=== PATIENT | female | born 1980 | race Caucasian/White ===

== ENCOUNTER 2019-10-22 05:54 | Emergency (ER) | payer BC, SELFPAY ==
[2019-10-22 06:15] VITALS: BP 118/96; PULSE 77; RESP 18; TEMP 36.8; O2SAT 98
[2019-10-22 06:23] LABS: Abs Immature Grans 0.02 k/cumm (0.0-0.09); Absolute Basophil Count 0.05 k/cumm (0.0-0.2); Absolute Eosinophil Count 0.15 k/cumm (0.0-0.7); Absolute Lymphocyte Count 2.28 k/cumm (1.2-3.4); Absolute Monocyte Count 0.93 k/cumm (0.11-0.7); Absolute Neutrophil Count 5.89 k/cumm (1.2-6.7); Basophils % 0.5; Eosinophils % 1.6; HGB 13.2 g/dL (12.0-15.5); Immature Grans % 0.2; Lymphocytes % 24.5; Mean Corp. HGB Concentration 34.7 g/dL (32.0-36.0); Mean Corpuscular Hemoglobin 28.6 pg (27.0-33.0); Mean Corpuscular Volume 82.4 fL (80-95); Mean Platelet Volume 9.8 fL (8.0-11.0); Neutrophils % 63.2; Platelet Count 198 x1000/uL (130-400); RBC 4.61 m/cumm (4.00-5.20); RBC Distribution Width 12.5 % (11.7-14.6); White Blood Cell Count 9.32 k/cumm (4.4-10.8)
[2019-10-22] MEDS: Omnipaque 350 MG/ML 100 ML BTL IJ (06:35)
--- NOTE | 2019-10-22 06:45 | DI.CT_ITS ---
EXAM: CT NECK W CLINICAL HISTORY: throat closing sensation, left throat pain TECHNIQUE: 100 cc Omnipaque 350 IV. COMPARISON: No exams were available for comparison FINDINGS: The parotid, submandibular and thyroid glands appear normal. There is no prevertebral soft tissue s welling. No tonsillar enlargement or tonsillar abscess is seen. There is no evidence of adenopathy. Epiglottis appears normal. The visualized portions of the lung apices appear clear. The sinuses a nd mastoid air cells appear clear. The visualized portions of the brain are unremarkable. There are minimal degenerative changes in the mid cervical spine. IMPRESSION: Negative CT of the neck.
--- NOTE | 2019-10-22 06:49 | DI.VRAD_ITS ---
PROCEDURE INFORMATION: Exam: CT Neck With Contrast Exam date and time: 10/22/2019 6:33 AM Age: 39 years old Clinical history: Throat pain; Additional info: Left throat pain, throat closing sensation TECHNIQUE: Imaging protocol: Computed tomography images of the neck with intravenous contrast. Radiation optimization: All CT scans at this facility use at least one of these dose optimization techniques: automated exposure control; mA and/or kV adjustment per patient size (includes targeted exams where dose is matched to clinical indication); or iterative reconstruction. Contrast material: [id number]; Contrast volume: 100 ml; Contrast route: IV LAC 18G; COMPARISON: No relevant prior studies available. FINDINGS: Nasopharynx: Unremarkable. Oropharynx: Unremarkable. No significant tonsillar enlargement. Hypopharynx: Unremarkable Larynx: Unremarkable. Normal epiglottis. Retropharyngeal space: Unremarkable. Submandibular/Parotid glands: Normal. Glands are normal in size. Thyroid: Normal. No enlarged or calcified nodules. Lymph nodes: Unremarkable. No lymphadenopathy. Trachea: Visualized trachea is unremarkable. Lungs: Unremarkable as visualized. Bones/joints: Degenerative change of the spine. Soft tissues: Unremarkable. No significant soft tissue swelling. IMPRESSION: No acute finding. Dictated and Authenticated by: Mickey Baltazar MD. Ordering:SYDNEY Aguayo MD
--- NOTE | 2019-10-22 06:55 | ED.GENADUL_ITS ---
Discharge Plan Disposition Patient Disposition: HOME Condition: Good Discharge Details Chief Complaint: Sorethroat Clinical Impression: Pain in throat Primary Care Provider: None,None ED Provider: Olivier Bran Home Meds and New Rx's Prescriptions: No Action ibuprofen 800 MG tablet 800 mg PO TID PRN PRNRF: 0 albuterol sulfate [Proventil HFA] 1 PUFF HFA aerosol inhaler 2 puff Inhalation QID PRN PRN (Reason: Wheezing) Qty: 1 RF: 0 (DME) inhalational spacing device [POCKET CHAMBER] 1 EACH spacer 1 ea Miscellaneous QID PRN Qty: 1 RF: 0 Discharge Instructions Instructions: Pharyngitis (ED) Additional Instructions: At this time your CT scan shows no evidence of abscess, lesion, tumor growth or mass. I suspect her symptoms are likely from a virus causing pharyngitis. Please take 800 mg of ibuprofen every 6 hours and up to 1000 mill grams of Tylenol every 6 hours. Please take 2 to 4 tablespoons of honey every 4-6 hours as well. If you notice any worsening of your symptoms, or any new symptoms such as vomiting, diarrhea, fever, chills, shortness of breath, chest pain, numbness, weakness, or fainting , please return immediately to the emergency department for reevaluation. Please follow up with your primary care provider as soon as possible for reassessment and reevaluation. As always, it was a pleasure participating in your medical care today. Medical Decision Making This is a 39-year-old female with no significant past medical history who presents today for evaluation of throat pain, patient states that for last 24 hours she has developed mild pain in the left side of her throat which she describes as a swelling mass which she feels is making slightly more difficult to swallow, however she is able to swallow drink and articulate well without any difficulty. Patient is very concerned about the sensation of this, she states that she had tonsillitis before he was notably severe requiring significant intervention. She is very worried for a mass or abscess growing in her throat. Physical exam demonstrates a notably unremarkable posterior oropharynx, mild swelling of the lymph nodes in the submandibular region. No tracheal deviation, or evidence of peritonsillar abscess or other abnormality. Discussed risks and benefits of imaging, including the risk of radiation, understanding these patient is requesting further imaging evaluation. Decadron and Toradol were given, and symptoms notably improved. CT scan was ordered and per virtual radiology demonstrates no evidence of paratracheal, peritonsillar, or other abscess or life-threatening throat abnormality. Signs and symptoms are inconsistent with severe vocal cord dysfunction, no stridor or other concerning clinical exam finding. At this time he feels patient signs and symptoms are clinically secondary to mild viral URI and subsequent minimal lymphadenopathy. Signs and symptoms and consistent with mono. Recommend Tylenol, Motrin and honey at home and close follow-up. She was given the Decadron and Toradol here. I have extensively reviewed the treatment plan and discharge instructions with the patient. I have addressed all patient concerns at this time. The patient was made aware of what symptoms to monitor for that would warrant a return to the emergency department. Discussed the plan with the patient, they demonstrate verbal understanding and agreement with our assessment and plan at this time. FINDINGS: Nasopharynx: Unremarkable. Oropharynx: Unremarkable. No significant tonsillar enlargement. Hypopharynx: Unremarkable Larynx: Unremarkable. Normal epiglottis. Retropharyngeal space: Unremarkable. Submandibular/Parotid glands: Normal. Glands are normal in size. Thyroid: Normal. No enlarged or calcified nodules. Lymph nodes: Unremarkable. No lymphadenopathy. Trachea: Visualized trachea is unremarkable. Lungs: Unremarkable as visualized. Bones/joints: Degenerative change of the spine. Soft tissues: Unremarkable. No significant soft tissue swelling. IMPRESSION: No acute finding. Thank you for allowing us to participate in the care of your patient. Dictated and Authenticated by: Mickey Baltazar MD 10/22/2019 6:49 AM Eastern Time ([place] & [place]) [facility] General Date/Time Provider Initiated Documentation: 10/22/19 05:59 . HPI Narrative: This is a 39-year-old female with no significant past medical history who presents today for evaluation of sore throat. Patient states that over the last 12 to 24 hours she developed mild pain in the left side of her throat and something that she describes as a swelling sensation, primarily under the left side of the jaw, not so much in the neck. She denies any difficulty speaking or swallowing. She denies any fever or chills. She denies any posterior neck pain or headache. She denies any chest pain. She denies any numbness tingling or weakness. She denies any severe fatigue. No other complaints at this time. No other modifying factors. Related Data Home Medications Medication Instructions Recorded Confirmed ibuprofen 800 mg PO TID PRN PRN 02/02/15 04/02/16 albuterol sulfate [Proventil HFA] 2 puff INHALATION QID PRN PRN #1 04/02/16 inh inhalational spacing device #1 spacer 04/02/16 [POCKET CHAMBER] Previous Rx's Medication Instructions Recorded albuterol sulfate [Proventil HFA] 2 puff INHALATION QID PRN PRN #1 04/02/16 inh inhalational spacing device #1 spacer 04/02/16 [POCKET CHAMBER] Allergies Allergy/AdvReac Type Severity Reaction Status Date / Time No Known Allergies Allergy Unverified 04/02/16 09:20 General Stated Complaint: Sorethroat STEVIE: 4 Review of Systems All systems reviewed & are unremarkable except as noted in HPI and below PFSH Social History Smoking/Tobacco Use Status: Never Drug use: Never Do you feel safe at home: Yes Exam Narrative Exam Narrative: 1.Const: Well-nourished, Well-developed, appearing stated age 2.Eyes: PERRL, no conjunctival injection, and symmetrical lids. 3.ENT: Atraumatic external nose and ears. Moist MM. Neck: Symmetric, trachea midline, No thyromegaly. No evidence of tonsillar enlargement or erythema in the posterior oropharynx. No tenderness on palpation of the throat, no mass or tracheal deviation. Mild swelling in the submandibular gland on the left. No other abnormality. Patient demonstrates good movement of cervical neck. There is no nuchal rigidity, no nuchal tenderness. Patient is able to flex the neck without any difficulty or significant pain. Negative Kernig's and Brudzinski sign. 4.CVS: +S1/S2, No murmurs or gallops. Peripheral pulses 2+ and equal in all extremities. Brisk capillary refill in all extremities. 5.RESP: Unlabored respiratory effort. Clear to auscultation bilaterally. No wheezes rales or rhonchi 6.GI: Soft, Nontender/Nondistended, No hepatosplenomegaly. No guarding or rebound. 7.MSK: Normocephalic/Atraumatic, Extremities w/o deformity or ttp No cyanosis or clubbing, Normal movement of all extremities 8.Skin: Warm, Dry. No rashes or lesions. 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 Sensation grossly intact, no focal neurologic deficits. 10.Psych: (AAO) x3. Appropriate mood and affect Course Vital Signs Vital signs: Vital Signs Temperature 36.8 C 10/22/19 06:15 Pulse 77 10/22/19 06:15 Respiratory Rate 18 10/22/19 06:15 Blood Pressure 84/54 L 10/22/19 06:15 Pulse Oximetry 98 10/22/19 06:15 Temperature 36.8 C 10/22/19 06:15 Temperature Source Temporal Artery Scan 10/22/19 06:15 Pulse 77 10/22/19 06:15 Respiratory Rate 18 10/22/19 06:15 Respiratory Effort 10/22/19 06:15 Blood Pressure 84/54 L 10/22/19 06:15 Blood Pressure Position Supine 10/22/19 06:15 Pulse Oximetry 98 10/22/19 06:15 Oxygen Delivery Method Room Air 10/22/19 06:15 Oxygen Flow Rate 0 10/22/19 06:15 Pain Level 5 10/22/19 06:15 Lab/Test Results Lab/Test Results: Laboratory Tests Range/Units 10/22/19 06:15 WBC (4.4-10.8) k/cumm 9.32 RBC (4.00-5.20) m/cumm 4.61 Hgb (12.0-15.5) g/dL 13.2 Hct (36.0-46.0) % 38.0 MCV (80-95) fL 82.4 MCH (27.0-33.0) pg 28.6 MCHC (32.0-36.0) g/dL 34.7 RDW (11.7-14.6) % 12.5 Plt Count (130-400) x1000/uL 198 MPV (8.0-11.0) fL 9.8 Immature Gran % 0.2 Neutrophils % 63.2 Lymphocytes % 24.5 Monocytes % 10.0 Eosinophils % 1.6 Basophils % 0.5 Absolute Neutrophils (1.2-6.7) k/cumm 5.89 Absolute Lymphocytes (1.2-3.4) k/cumm 2.28 Absolute Monocytes (0.11-0.7) k/cumm 0.93 H Absolute Eosinophils (0.0-0.7) k/cumm 0.15 Absolute Basophils (0.0-0.2) k/cumm 0.05
[2019-10-22] MEDS: Ketorolac 30 MG/ML VIAL IVP (06:57)
[2019-10-22] MEDS: Dexamethasone 10 MG/ML VIAL IVP (06:58)
[2019-10-22 07:22] VITALS: BP 102/62; PULSE 78; RESP 18; O2SAT 99
== END 2019-10-22 07:24 | disposition home or self-care (01) ==
PROVIDERS: Emergency Provider Student in an Organized Health Care Education/Training Program
DX: J02.8 Acute pharyngitis due to other specified organisms (principal)
CPT/HCPCS: 36415; 70491; 96374; 96375; 99285; 85025; 99284; J1100; J1885; J3490

== ENCOUNTER 2023-09-24 10:58 | Outpatient (REF) | payer OTHER, SELFPAY ==
[2023-09-24 14:33] LABS: HGB 13.1 g/dL (11.2-15.7); MCH 28.1 pg (27.0-33.0); MCHC 34.5 % (32.0-36.0); MCV 82 fL (80-95); MPV 10.6 fL (8.0-11.0); Platelet Count 197 10^3/uL (130-400); RBC 4.66 10^6/uL (3.93-5.22); RDW 12.1 % (11.7-14.6); RDW-SD 35.8 fL; WBC 5.19 10^3/uL (4.4-10.8)
[2023-09-24 15:07] LABS: ALT 29 U/L (14-59); AST 20 U/L (15-37); Albumin 4.3 g/dL (3.4-5.0); Alkaline Phosphatase 61 U/L (46-116); Anion Gap 8.9 mmol/L (3-11); BUN 21 mg/dL (7-18); Bilirubin, Total 0.8 mg/dL (0.2-1.0); CO2 27.1 mmol/L (21.0-32.0); CREATININE 0.8 mg/dL (0.55-1.02); Calcium 9.5 mg/dL (8.5-10.1); Calculated LDL 126 mg/dL (<100); Chloride 106 mmol/L (98-107); Cholesterol 213 mg/dL (<200); Estimated GFR 93.12 (mL/min/1.73m2); Glucose 110 mg/dL (74-106); HDL Cholesterol 75 mg/dL (40-60); Potassium 4.6 mmol/L (3.5-5.1); Sodium 142 mmol/L (136-145); Total Protein 8.1 g/dL (6.4-8.2); Triglyceride 60 mg/dL (<150)
== END 2023-09-24 10:59 | disposition home or self-care (01) ==
LOC: NCHCN 10:58
PROVIDERS: Visit Provider Nurse Practitioner Family
DX: Z00.00 Encounter for general adult medical examination without abnormal findings (principal)
CPT/HCPCS: 80053; 80061; 85027

== ENCOUNTER 2024-10-05 16:37 | Outpatient (REF) | payer OTHER, SELFPAY ==
[2024-10-05 20:51] LABS: HCT 37.7 % (36.0-46.0); HGB 12.8 g/dL (11.2-15.7); MCH 27.9 pg (27.0-33.0); MCV 82 fL (80-95); MPV 10.3 fL (8.0-11.0); Platelet Count 212 10^3/uL (130-400); RBC 4.58 10^6/uL (3.93-5.22); RDW 12.6 % (11.7-14.6); RDW-SD 37.6 fL; WBC 7.41 10^3/uL (4.4-10.8)
[2024-10-05 21:19] LABS: ALT 23 U/L (14-59); AST 17 U/L (15-37); Albumin 4.1 g/dL (3.4-5.0); Alkaline Phosphatase 70 U/L (46-116); Anion Gap 11.3 mmol/L (3-11); BUN 19 mg/dL (7-18); Bilirubin, Total 0.73 mg/dL (0.2-1.0); CO2 25.7 mmol/L (21.0-32.0); CREATININE 0.8 mg/dL (0.55-1.02); Calculated LDL 121 mg/dL (<100); Chloride 105 mmol/L (98-107); Cholesterol 220 mg/dL (<200); Estimated GFR 92.54 (mL/min/1.73m2); Glucose 87 mg/dL (74-106); HDL Cholesterol 80 mg/dL (40-60); Sodium 142 mmol/L (136-145); TSH (W/Ref FT4) 0.66 uIU/mL (0.36-3.74); Total Protein 7.7 g/dL (6.4-8.2); Triglyceride 99 mg/dL (<150)
== END 2024-10-05 16:38 | disposition home or self-care (01) ==
LOC: NCHCN 16:37
PROVIDERS: Visit Provider Nurse Practitioner Family
DX: R53.83 Other fatigue (principal); Z00.00 Encounter for general adult medical examination without abnormal findings
CPT/HCPCS: 80053; 80061; 85027; 84443

== ENCOUNTER 2024-12-09 08:25 | Day surgery (SDC) | payer OTHER, SELFPAY ==
--- NOTE | 2024-12-08 21:20 | COLE_ITS ---
Date of service: 12/09/24 Time of Service: 10:38 Colonoscopy Report Date of procedure: 12/09/24 Pre-op diagnosis general: Colon cancer screening Post-op diagnosis procedure note: same Surgeon: Shayy Henderson Anesthesia Type: General:No Airway Estimated blood loss (mL): 0 Pathology: none sent Complications: None Disposition: same day Prep: Miralax/Dulcolax Retraction Time: 8 Procedure Description: After informed consent was obtained, explaining risks of the procedure, including but not limits to: bleeding, infections, complications of anesthesia, perforations (which may require antibiotics and /or surgery and stay in the hospital), and abdominal pain/cramping. The patient was taken to the procedure room and placed in a left decubitous position. Monitors were applied and a time out was done. The patients name, date of , procedure, allergies to medications and metal in their body was reviewed. The patient was then sedated. Once sedated and comfortable a rectal exam was done. External exam was normal. Internal exam revealed a normal sphincter tone and no palpable masses. The previously lubricated Olympus scope was then introduced (see RN notes for scope number) and retrofelexed. No internal hemorrhoids were identified. The scope was then advanced to the cecum without difficulty. The TI and appendiceal orifice were identified. The scope was then slowly retracted over 8 minutes back into the rectum. Polyps: None. Diverticula: None. The mucosa is pink and healthy w/ a normal vascular pattern. The scope was removed, and the patient was woken up and taken back to Same day surgery in stable condition. The patient tolerated the procedure well and there were no immediate complications. Follow up: The patient should follow up in 10 years, unless they develop changes in bowel habits or other new gastrointestinal complaints. Garland Bowel Prep Garland Bowel Prep Right Colon: 3 Left Colon: 3 Transverse Colon: 3 Total Score: 9
--- NOTE | 2024-12-08 21:21 | PDOC.DSDIS_ITS ---
Date of service: 12/09/24 Discharge Plan Disposition Patient Disposition: Home Condition: Good Discharge Details Reason For Visit: Colon cancer screening Attending Provider: Shayy Henderson Primary Care Provider: Elva Michel Home Meds and New Rx's Prescriptions: Continued estradiol 1 mg tablet 1 mg PO DAILY Rx Instructions: off 1 week; repeat cycle hydroxyzine HCl 50 mg tablet 50 mg PO QHS ondansetron 4 mg tablet,disintegrating 4 mg PO Q8H Qty: 3 0RF Discontinued bisacodyl [Dulcolax (bisacodyl)] 5 mg tablet,delayed release (DR/EC) 5 mg PO ONCE Qty: 4 0RF Rx Instructions: Take per colonoscopy instructions provided by ordering providers office polyethylene glycol 3350 17 gram/dose powder 17 g PO ONCE Qty: 238 0RF Rx Instructions: Take per colonoscopy instructions provided by ordering providers office Discharge Instructions Additional Instructions: DSU Colonoscopy Post- Op Instructions Instructions for Everyone who is given Anesthesia: For your safety, please do the following for the next twenty-four (24) hours: *Do Not operate a motor vehicle (car, truck, motorcycle, etc.) *Do Not drink alcoholic beverages or use any recreational drugs for the first 24 hours or while taking pain medications. The medications in your body may have a reaction that can be dangerous. *Do Not make any important decisions or sign any important papers. Findings: Normal Follow up: Repeat colonoscopy in 10 years time Of course, you should continue to have a yearly physical exam including a rectal exam. If you should ever notice any pain or difficulty having a bowel movement, blood in the stool, unexplained weight loss, or change in your bowel habits, please contact your health provider 1. No lifting over 20 pounds or strenuous activity for the first 24 hours after your procedure. After 24 hours there are no restrictions on your activity but you may feel fatigued for a few days. 2. After you arrive home you may have a light meal and return to your normal diet as you can tolerate it without feeling sick to your stomach. 3. You may have a bloated, gaseous feeling in your belly (abdomen) after a colonoscopy. Passing gas and belching will help. Walking or lying down on your left side with your knees flexed may relieve the discomfort. Call the office at [phone] (Office) or [phone] (Hospital) right away if you notice any of the following: a.Vomiting of blood or ?coffee ground stools?. b.Rectal bleeding 1Tbsp, blood clots or continuous bleeding. c.Severe belly (abdominal) pain. d.A hard distended belly (abdomen) and an inability to pass gas. 4. Please don?t expect to have a normal BM (bowel movement) for 2-3 days after your procedure. 5. If there are questions regarding the findings of your procedure, please contact your doctor 6. If you are unable to contact your doctor with a problem, contact the hospital at [phone]. 7. Continue all your regular medications unless directed otherwise. I understand the above instructions and have no questions. Signature of Patient or Adult Escort Name of Responsible Adult Escort Signature of Nurse Date/Time Stand Alone Forms: Anesthesia Discharge Florinda Robledo (DSU) Activity:: See above Diet:: See above Discharge Orders Discharge Orders: Discharge Order (Routine); Ordered 12/08/24 Ordered By: Shayy Henderson DS: Diagnosis Discharge Diagnosis (1) History of hysterectomy: (2) Screening for malignant neoplasm performed: Status: Acute Asessment and Plan: The patient is seen and examined after their colonoscopy.? The patient has been able to pass gas.? They are not having abdominal pain.? They have been able to tolerate liquids and a snack.? They do not have any nausea or vomiting.? They are not having any chest pain or shortness of breath.??? They are not having any rectal bleeding. Their vital signs have been stable-see nursing notes. We discussed findings during their colonoscopy, and any biopsies that were done/polyps that were removed. The patient will be sent a letter with any biopsy results, and when to repeat the colonoscopy.-see discharge instructions. Patient was given explicit instructions to follow-up regarding colonoscopy-refer to discharge instructions.? We reviewed resumption of medications. Patient verbalized understanding and discharged in stable and satisfactory condition- See nursing notes.
[2024-12-09 08:54] VITALS: BP 115/73; PULSE 63; RESP 16; TEMP 36.3; O2SAT 96
[2024-12-09] MEDS: Lactated Ringers 1,000 ML 80 ML IV (09:07)
--- NOTE | 2024-12-09 09:58 | W.ANESPRE ---
General Info Date of Service Date Performed: 12/09/24 Height: 5 ft 3 in Weight: 69.4 kg Body Mass Index (BMI): 27.1 Surgical Procedure: Operation Date: 12/09/24 09:50 Proposed Procedure Side Surgeon pao Henderson, Meds Allergies and Home Medications Allergies Allergy/AdvReac Type Severity Reaction Status Date / Time No Known Allergies Allergy Verified 12/09/24 08:53 Home Medication ?Medication ?Instructions ?Recorded estradiol 1 mg tablet 1 mg PO DAILY 11/14/24 hydroxyzine HCl 50 mg tablet 50 mg PO QHS 11/14/24 ondansetron 4 mg disintegrating 4 mg PO Q8H #3 tabs 11/17/24 tablet Current Visit Medications: Current Medications Generic Name Dose Route Start Last Admin Trade Name Freq PRN Reason Stop Dose Admin Hyoscyamine Sulfate 0.125 mg 12/09/24 09:06 Hyoscyamine 0.125 Mg Sl/Oral/Chew SL 01/08/25 09:05 DIRECTED PRN Ringer's Solution 1,000 mls @ 80 mls/hr 12/09/24 08:00 12/09/24 09:07 IV 01/08/25 07:59 80 mls/hr INFUSION EZIO Administration IV Miscellaneous Supplies 1 each 12/09/24 06:00 Iv Access IV 12/09/24 23:59 DIRECTED EZIO Ondansetron HCl 4 mg 12/09/24 09:06 Ondansetron 4 Mg/2 Ml Vial IVP 01/08/25 09:05 Q4H PRN PRN Nausea / Vomiting Sodium Chloride 0 ml 12/09/24 06:00 Normal Saline Flush 10 Ml Syr IV 12/09/24 23:59 PRN PRN Sodium Chloride 0 ml 12/09/24 06:00 Normal Saline 10 Ml Vial IJ 12/09/24 23:59 DIRECTED PRN Sterile Water 0 ml 12/09/24 06:00 Water,Injection,Sterile 10 Ml Vial IJ 12/09/24 23:59 DIRECTED PRN PFSH Active Problems Active Problems: Problem Status Onset Code Screening for malignant neoplasm performed Acute Z12.9 Medical History Medical History Pain in right shoulder Fatigue Insomnia Surgical History Surgical History History of hysterectomy partial H/O: Tobacco Smoking/Tobacco Use Status: Never Alcohol Alcohol Intake: never Substance Use Substance use: Never Substance use type: does not use Vital Signs and Lab Results Vital Signs Most Recent Vital Signs in EMR: Most Recent Vital Signs Temp Pulse Resp BP Pulse Ox 36.3 C L 63 16 115/73 96 12/09/24 08:54 12/09/24 08:54 12/09/24 08:54 12/09/24 08:54 12/09/24 08:54 Lab Results Blood Type / Crossmatch: No Data to Display Complete Blood Count: No Data to Display Complete Metabolic Panel: No Data to Display Liver Function Panel: No Data to Display Coagulation Panel: No Data to Display Cardiac Panel: No Data to Display Arterial Blood Gas: No Data to Display Venous Blood Gas: No Data to Display Pancreas Panel: No Data to Display Thyroid Panel: No Data to Display Infectious Disease: No Data to Display Blood Cultures: No Data to Display Toxicology Panel: No Data to Display Panel: No Data to Display Anesthesia Assessment and Plan Anesthesia History Personal History: No History of Anesthesia Complications Family History: No Family History of Anesthesia Complications Exercise Tolerance Exercise Tolerance: Metabolic Equivalents>4 Pertinent Negatives Pertinent Negatives: No Symptoms of GERD Cardiac & Pulmonary Exam Cardiac Exam: Normal S1/S2 Heart Sounds Pulmonary Exam: Clear Bilateral Breath Sounds Implantable Cardiac Device Does patient have a Pacemaker or an ICD?: No Airway Exam Known Difficult Airway: No Mallampati Class: 1 Mouth Opening: Normal (> 3cm) Thyromental Distance: Greater than 3 cm Neck Range of Motion: Full ROM Neck Circumference: Normal Teeth Condition: Normal Dentition ASA Classification ASA Score: ASA 1 Emergency Case?: No NPO Status NPO Status: NPO Clears >2 hours, Solids >8 hours Status Status: History of Hysterectomy Anesthesia Plan Resuscitation Status: Full Code Anesthesia Technique: General Anesthesia Airway Planned: Natural Airway Monitors Used: Standard Monitors
[2024-12-09 09:59] VITALS: BMI 27.1
[2024-12-09 10:27] VITALS: BP 99/62; PULSE 69; RESP 16; TEMP 36.3; O2SAT 98
--- NOTE | 2024-12-09 10:36 | W.ANESPOSTOP ---
Postoperative Evaluation Date, Time and Location Date Performed: 12/09/24 Time Performed: 10:37 Patient Location: Day Surgery Unit Vital Signs Most Recent Imported Vital Signs: Most Recent Vital Signs Temp Pulse Resp BP Pulse Ox 36.3 C L 69 16 99/62 L 98 12/09/24 10:27 12/09/24 10:27 12/09/24 10:27 12/09/24 10:27 12/09/24 10:27 Pain Score Most Recent Pain Score: Most Recent Pain Score Pain Level 0 12/09/24 10:27 Assessment Mental Status: Awake (Alert & Oriented to Patient Baseline) Airway and Respiratory Function: Patent airway with normal (patient baseline) respiratory exam Cardiovascular Function: Hemodynamically Stable Hydration Status: Adequately Hydrated Nausea & Vomiting: No Nausea or Vomiting Pain: Pt. Denies Any Pain Peripheral Nerve Block: Patient did not receive a nerve block
[2024-12-09 10:59] VITALS: BP 117/92; PULSE 71; RESP 16; TEMP 36.2; O2SAT 100
== END 2024-12-09 11:17 | disposition home or self-care (01) ==
LOC: SUR 08:25
PROVIDERS: PCP Nurse Practitioner Family; Visit Provider Surgery
PROC: 0DJD8ZZ Inspection of Lower Intestinal Tract, Via Natural or Artificial Opening Endoscopic (ICD-10-PCS; CPT 45378; principal; 2024-12-09 09:45)
DX: Z12.11 Encounter for screening for malignant neoplasm of colon
CPT/HCPCS: 45378; J2704

== ENCOUNTER 2025-06-03 09:23 | Emergency (ER) | payer OTHER, SELFPAY ==
--- NOTE | 2025-06-03 09:15 | RT.EKG_ITS ---
APPROVED REPORT Exam: Resting ECG Reason for Exam: Chest Pain Patient Location: E HR:63 bpm ECG Measurements Heart Rate 63 AXIS VT 122 P 26 QRSd 85 QRS 59 QT 420 T 35 QTc 430 Conclusion Sinus rhythm, rate 63 No interval abnormalities No STEMI No priors available for comparison
[2025-06-03 09:27] VITALS: BP 118/76; PULSE 67; RESP 16; TEMP 36.6; O2SAT 98
--- NOTE | 2025-06-03 09:30 | DI.RAD_ITS ---
Exam(s) XR RIBS RT PA CHEST 3V EXAM: XR RIBS RT PA CHEST 3V CLINICAL HISTORY: R. chest wall pain, recent PNA and bear hug. TECHNIQUE: 2D digital imaging was performed. COMPARISON: No exams were available for comparison FINDINGS: Total three views: Right ribs-two views: On this limited two view study of the right ribcage there are no obvious fractures nor osseous lesions. Chest-single PA upright view: Normal heart size. Mediastinum not widened. Lungs are clear. No infiltrates nor pleural effusions. No pneumothorax. IMPRESSION: No acute pulmonary findings. No obvious right rib fractures on this limited two view study submitted for interpretation. DATA REPOSITORY: RADIATION DOSE DELIVERED:
--- NOTE | 2025-06-03 09:41 | W.ED.GENAD ---
Discharge Plan Disposition Patient Disposition: Home Condition: Stable Discharge Details Clinical Impression: Contusion of rib on right side Primary Care Provider: Elva Michel ED Provider: Holly Britt Home Meds and New Rx's Prescriptions: No Action estradiol 1 mg tablet 1 mg PO DAILY Rx Instructions: off 1 week; repeat cycle hydroxyzine HCl 50 mg tablet 50 mg PO QHS azithromycin 250 mg tablet 250 mg PO DAILY Patient Comments: TAKE TWO TABLETS BY MOUTH (500MG) ON DAY 1, FOLLOWED BY 1 TABLET (250MG) ONCE DAILY ON DAYS 2 THROUGH 5 budesonide-formoterol 160-4.5 mcg/actuation HFA aerosol inhaler 2 puff INHALATION BID Patient Comments: INHALE TWO PUFFS BY MOUTH TWO TIMES A DAY Discharge Instructions Instructions: Bruised Rib Additional Instructions: You were seen in the emergency department today for evaluation of right-sided rib pain which is likely due to a bruised rib. In our department you had a full physical examination performed, had an x-ray that did not show any severe pneumonia or broken ribs, though I do recommend that you continue the course of antibiotics as prescribed, until it is gone. I recommend a multimodal pain management approach, and you should buy some lidocaine patches [id number] to put in the area of maximal pain. Please use therapeutic dosing of Tylenol (acetaminophen) & Advil (ibuprofen) in an alternating fashion as follows: Take 1000mg of Tylenol every 6 hours without missing doses- that is 4 times per day. Mullens in between the Tylenol doses, take 600mg of Advil also on a 6 hour schedule, that is also 4 times per day. With this strategy, you will be taking something for fever/pain as often as every 3 hours. The daily maximum dosing of Tylenol is 4000mg, and the daily maximum dosing of Advil is 2400mg. Please note that some common cold medications & prescription pain medications may contain acetaminophen and you need to read OTC drug labels and factor that in to maximum daily doses. It is very important that you engage in pulmonary hygiene, which means bracing the side of your chest that hurts with a pillow during deep coughs, and utilizing the incentive spirometer at least 3 times per day to open up your lungs. Please follow-up with your primary care provider in the next few days to discuss this visit and any symptoms that change, worsen, or persist. Thank you for allowing us to be part of your care. HPI General Mode of arrival: ambulatory. Date/Time Provider Initiated Documentation: 06/03/25 09:25. Limitations to Documentation: no limitations. Information obtained by: patient, family and old records reviewed. HPI Narrative: This is a 45-year-old female patient with a history most notable for a recent diagnosis of pneumonia, on azithromycin since , presenting for evaluation of right sided chest pain. The patient reports that on Thursday of this week her family member gave her a big bear hug and she felt a pop. Since that time she has had pain in her anterior right chest radiating into her right axilla with movement or deep breath. She has had a cough productive of whitish-yellow sputum, no hemoptysis. She does not have a fever, denies calf pain or swelling, and does not take any hormonal control medications. She reports that she has been managing her pain at home with Tylenol and ibuprofen but presents today with worsening pain that is making it difficult to sleep and move around. She has no personal history of respiratory diseases. Related Data Home Medications ?Medication ?Instructions ?Recorded ?Confirmed estradiol 1 mg tablet 1 mg PO DAILY 11/14/24 06/03/25 hydroxyzine HCl 50 mg tablet 50 mg PO QHS 11/14/24 06/03/25 azithromycin 250 mg tablet 250 mg PO DAILY 06/03/25 06/03/25 budesonide-formoterol HFA 160 2 puff inhalation BID 06/03/25 06/03/25 mcg-4.5 mcg/actuation aerosol inhaler Allergies Allergy/AdvReac Type Severity Reaction Status Date / Time No Known Allergies Allergy Verified 06/03/25 09:32 General Stated Complaint: Chest/Rib STEVIE: 3 Exam Narrative Exam Narrative: Gen: Awake and alert, appears uncomfortable HEENT: Non-icteric sclera Neck: Supple Lungs: No apparent respiratory distress, normal respiratory effort. Lung sounds clear and equal bilaterally with the exception of a small area of crackles left lower lung jeter that clear with a cough CV: Appears well perfused, heart with regular rate and rhythm, strong distal pulses. Chest wall is not significantly tender to palpation and there are no overlying skin changes, though the pain right chest pain is reproduced with movement and deep breath, radiating from the sternum into the axilla. No axillary lymphadenopathy is palpable Abdomen: Non-distended MSK: Moves 4 extremities without apparent limitation in ROM. No unilateral calf swelling or tenderness, no peripheral edema Skin: Visualized skin without rashes, cyanosis. Neuro: Normal Gait, no obvious focal deficits or facial asymmetry. Speaks in full, clear sentences. Psych: Appropriate for situation. Course Vital Signs Vital signs: Vital Signs Temperature 36.6 C 06/03/25 09:27 Pulse 67 06/03/25 09:27 Respiratory Rate 16 06/03/25 09:27 Blood Pressure 118/76 06/03/25 09:27 Pulse Oximetry 98 06/03/25 09:27 Temperature 36.6 C 06/03/25 09:27 Temperature Source Oral 06/03/25 09:27 Pulse 67 06/03/25 09:27 Respiratory Rate 16 06/03/25 09:27 Blood Pressure 118/76 06/03/25 09:27 Blood Pressure Position Sitting 06/03/25 09:27 Pulse Oximetry 98 06/03/25 09:27 Oxygen Delivery Method Room Air 06/03/25: Oxygen Flow Rate 0 06/03/25 09:27 Pain Level 8 06/03/25 09:27 Medical Decision Making This is a 45-year-old female patient presenting for evaluation of right sided chest pain after recent strong COVID and diagnosis of pneumonia. My differential includes but is not limited to rib fracture, rib contusion, certainly considered underlying pulmonary abnormalities including pulmonary contusion, pneumothorax. Also considered ongoing pneumonia. The patient is without DVT symptoms, hormone use, and otherwise meets PERC criteria for PE rule out. There is no abdominal discomfort or hemodynamic instability to suggest abdominal organ injury such as liver or spleen lac. The location and reproducibility of the pain as well as the patient's age and lack of risk factors is reassuring against ACS. I will provide the patient with Tylenol, ibuprofen, and a Lidoderm patch. Will obtain x-ray imaging of the affected ribs. At this time I do not see an indication to proceed with laboratory studies or other advanced imaging. I did review the patient's EKG, which shows a sinus rhythm without evidence of ischemia, interval abnormality, or ectopy. There were no priors available for comparison. X-ray reveals no fractures or significant underlying pulmonary abnormalities, and I am most concerned for a rib contusion. The patient reports improvement in her symptoms after the above-noted medications, and I counseled her on Tylenol and ibuprofen dosing as well as Lidoderm use. She is not desiring of any stronger medication for management of pain. She was able to pull 1500 cc on incentive spirometry and was counseled on pulmonary hygiene. At this time, the patient has had a full medical evaluation and is safe for discharge to home. They are hemodynamically stable, ambulatory, and tolerating PO. They are understanding of the follow-up plan and return precautions. They left our facility without incident. Holly Britt MD [facility] All Active Problems (Updated 06/03/25 @ 10:48 by Holly Britt MD) Contusion of rib on right side (Acute) Screening for malignant neoplasm performed (Acute) Medical History (Updated 06/03/25 @ 10:48 by Holly Britt MD) Pain in right shoulder Fatigue Insomnia Surgical History (Updated 12/09/24 @ 12:56 by Janet Valentnie) History of colonoscopy (~11/2024) History of hysterectomy partial H/O: Social History (Updated 11/18/24 @ 09:24 by SPARKLE Springer) Smoking/Tobacco Use Status: Never Smoking risk assessment performed?: Yes Alcohol Intake: never Drug use: Never Substance use type: does not use Housing: house Do you feel safe at home: Yes Do you feel safe in your relationship?: Yes
[2025-06-03] MEDS: Ibuprofen 600 MG TAB PO (09:58)
[2025-06-03] MEDS: Acetaminophen 500 MG TAB 1000 MG PO (09:59)
[2025-06-03] MEDS: Lidocaine 5% Patch 1 PATCH TP (09:59)
--- NOTE | 2025-06-03 10:39 | DI.VRAD_ITS ---
PROCEDURE INFORMATION: Exam: XR Right Ribs Exam date and time: 06/03/2025 10:26 AM Age: 45 years old Clinical indication: Injury or trauma; Other: R. Chest wall pain, recent pna and bear hug TECHNIQUE: Imaging protocol: Radiologic exam of the right ribs. Views: 2 views. COMPARISON: No relevant prior studies are available for comparison. FINDINGS: No displaced rib fracture seen. IMPRESSION: No displaced rib fracture seen. PROCEDURE INFORMATION: Exam: XR Chest Exam date and time: 06/03/2025 10:26 AM Age: 45 years old Clinical indication: Injury or trauma; Other: R. Chest wall pain, recent pna and bear hug TECHNIQUE: Imaging protocol: Radiologic exam of the chest. Views: 1 view. COMPARISON: No relevant prior studies are available for comparison. FINDINGS: Lungs: No focal consolidation seen. Pleural spaces: No large pleural effusion seen. Heart/Mediastinum: No cardiomegaly. Bones/joints: No acute abnormality. IMPRESSION: No acute findings to explain reported symptoms. Dictated and Authenticated by: Ade Andre MD. Orderin [facility]. Edenilson Barrera MD
== END 2025-06-03 11:23 | disposition home or self-care (01) ==
PROVIDERS: Emergency Provider Emergency Medicine; PCP Nurse Practitioner Family
DX: S29.8XXA Other specified injuries of thorax, initial encounter (principal); X58.XXXA Exposure to other specified factors, initial encounter
CPT/HCPCS: 99283 ×2; 93005; 71046; 71100; 93010